=== PATIENT | male | born 1950 | race Caucasian/White ===

== ENCOUNTER → 2018-07-09 | Outpatient (REF) | payer MEDICARE, OTHER ==
[~2018-07-09] MED LIST: ASPIR-TRIN325 MG OR; BACTRIM DS1 TAB PO; BAYER ASA325 MG OR; CAL-CITRATE150 MG; CELEBREX200 MG OR; LEXAPRO10 MG PO; LIPITOR40 MG OR; LORTAB 7.5 PO; LORTAB/VICODIN1 TAB OR; METOPROL TAR50 MG PO; OMEPRAZOLE20 MG PO; PEPCID20 MG OR; PLAVIX75 MG OR; PROTONIX40 MG OR; RED YEAS1 OR; TOPROL XL50 MG OR; VICODIN OR; VITAMIN B12500 MCG OR; [UNRECOGNIZED DRUG - OTHER] OR
== END | disposition home or self-care (01) ==
LOC: DI 13:02
PROVIDERS: ATTEND Orthopaedic Surgery
DX: M25.551 Pain in right hip (principal); M25.531 Pain in right wrist; M79.631 Pain in right forearm; S52.501A Unspecified fracture of the lower end of right radius, initial encounter for closed fracture